=== PATIENT | female | born 2000 | race Caucasian/White ===

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

== ENCOUNTER 2021-03-03 11:39 | Inpatient (IN) | payer OTHER, MEDICAID ==
[2021-03-03] MEDS ORDERED: Oxytocin/0.9 % Sodium Chloride 30 UNIT/500 ML BAG ONE (11:49)
[2021-03-03] MEDS ORDERED: Butorphanol 1 MG/ML SDV IVPUSH PRN (11:56)
[2021-03-03] MEDS ORDERED: Lidocaine 1% 50 ML MDV INJECT PRN (11:56)
[2021-03-03] MEDS ORDERED: Carboprost Tromethamine 250 MCG/1 ML Amp IM PRN (11:56)
[2021-03-03] MEDS ORDERED: Water For Irrigation,Sterile 1,000 ML Container IRR PRN (11:56)
[2021-03-03] MEDS ORDERED: Tranexamic Acid 1,000 MG in Sodium Chloride 0.9% 100 ML IV PRN (11:56)
[2021-03-03] MEDS ORDERED: Methylergonovine 0.2 MG/1 ML Amp IM PRN (11:56)
[2021-03-03] MEDS ORDERED: Misoprostol 200 MCG Tab PO PRN (11:56)
[2021-03-03] MEDS ORDERED: Sodium Chloride 0.9% 10 ML Syringe FLUSH PRN (11:56)
[2021-03-03] MEDS ORDERED: Sodium Chloride 0.9% 2.5 ML Syringe FLUSH PRN (11:56)
[2021-03-03] MEDS ORDERED: Sodium Chloride 0.9% 20 ML SDV IV PRN (11:56)
[2021-03-03] MEDS ORDERED: Nalbuphine 10 MG/1 ML Vial IVPUSH PRN (11:56)
[2021-03-03] MEDS ORDERED: Oxytocin/0.9 % Sodium Chloride 30 UNIT/500 ML BAG IV SCH (12:00)
[2021-03-03] MEDS ORDERED: Lactated Ringers 1,000 ML IV SCH (12:00)
[2021-03-03] MEDS ORDERED: Morphine 2 MG/ML SYRINGE ONE (12:09)
[2021-03-03] MEDS ORDERED: Lidocaine 1% 20 ML MDV ONE (12:13)
[2021-03-03] MEDS ORDERED: Lidocaine 1% 20 ML MDV INJECT PRN (12:16)
[2021-03-03] MEDS ORDERED: Morphine 2 MG/ML SYRINGE IVPUSH ONE (12:17)
[2021-03-03] MEDS ORDERED: oxyCODONE 5 MG Tab PO PRN (12:39)
[2021-03-03] MEDS ORDERED: Lanolin 100% Cream 7 GM Tube TOP PRN (12:39)
[2021-03-03] MEDS ORDERED: Docusate Sodium 100 MG Cap PO PRN (12:39)
[2021-03-03] MEDS ORDERED: Witch Hazel Medicated Pads 40/Jar TOP PRN (12:39)
[2021-03-03] MEDS ORDERED: Ibuprofen 400 MG Tab PO PRN (12:39)
[2021-03-03] MEDS ORDERED: Acetaminophen 500 MG Tab PO PRN ×2 (12:39)
[2021-03-03] MEDS ORDERED: Bisacodyl 10 MG Supp RECTAL PRN (12:39)
[2021-03-03] MEDS ORDERED: Benzocaine/Menthol 20%-0.5% Spray 78 GM Cannister TOP PRN (12:39)
--- NOTE | 2021-03-03 12:49 | PCM.OPNOTE ---
- General Post-Op/Procedure Note Date of Surgery/Procedure: 03/03/21 Operative Procedure(s): Spontaneous vaginal delivery. Repair of second degree perineal laceration Findings: Normal appearing female in cephalic presentation. Blood tinged amniotic fluid. Weight 7lbs 8oz. APGARs 8/9. 2nd degree perineal laceration. Pre Op Diagnosis: 1. Diaz intrauterine gestation at 39w0d. 2. Spontaneous labor Post-Op Diagnosis: Same Anesthesia Technique: Local Primary Surgeon: Maggie Lam Pathology: Placenta EBL in mLs: 300 Complications: None known Condition: Good Free Text/Narrative:: Dictation #[id number]
--- NOTE | 2021-03-03 14:16 | OR ---
SURGEON: MAGGIE LAM MD DATE OF PROCEDURE: 03/03/2021 PREOPERATIVE DIAGNOSES: 1. Diaz intrauterine gestation at 39 weeks 0 days. 2. Spontaneous active labor. POSTOPERATIVE DIAGNOSES: 1. Diaz intrauterine gestation at 39 weeks 0 days. 2. Spontaneous active labor. PROCEDURES: 1. Spontaneous vaginal delivery. 2. Second-degree midline laceration repair. PRIMARY SURGEON: Maggie Lam MD ANESTHESIA: Local anesthetic. ESTIMATED BLOOD LOSS: 300 mL. COMPLICATIONS: None known. FINDINGS: Viable female , cephalic presentation. scores of 8 at one minute, 9 at five minutes. Weight of 7 pounds 8 ounces. Spontaneous delivery of intact placenta. Three-vessel cord. Blood-tinged amniotic fluid. DISPOSITION: The patient is in LDRP with . PROCEDURE DETAILS: The patient is a 20-year-old, 2, para 1, who presented to Labor and Delivery at 39 weeks and 0 days in spontaneous active labor. Upon arrival to the hospital, she was noted to be 9 cm dilated with a bulging bag. Shortly after admission to the hospital, artificial rupture of membranes was performed per patient request with blood-tinged amniotic fluid, Shortly thereafter, the patient pushed with good efforts on hands and knees and delivered a viable female at 1202. The infant's oropharynx and nares were bulb suctioned. The was handed off to the mother with attending nursing staff at bedside. After a delay, the cord was clamped and cut. Arterial, venous, and cord blood gases were then obtained. Light pressure was applied while the placenta was delivered spontaneously intact. 30 units of Pitocin was delivered in 500 mL of IV fluid. Upon inspection of the cervix, vaginal hollis and perineum, there was found to be a second-degree midline laceration. Prior to repair of the laceration, the patient received 2 mg of IV morphine and 10 mL of local anesthetic was injected into the perineum. The second-degree perineal laceration was repaired in usual fashion with 3-0 Vicryl. Hemostasis appeared evident. Uterus remained firm. Sponge, lap, and needle counts were correct. The patient remained in LDRP at this time. DEUCE / BRYCE /[id number] [facility]
[2021-03-03] MEDS: Ibuprofen 800 MG Tab PO PRN (15:38)
[2021-03-04] MEDS: Ibuprofen 800 MG Tab PO PRN (04:59)
--- NOTE | 2021-03-04 06:10 | PCM.PNPP ---
- General Info Date of Service: 03/04/21 Subjective Update: Resting comfortably in bed during rounds. Pain well controlled. Ambulating and voiding without difficulty. Lochia decreasing. Tolerating regular diet. , working on latching. - General Info Date of Service: 03/04/21 - Patient Data Weight - Most Recent: 160 lb I&O - Last 24 Hours: Intake & Output 03/03/21 03/03/21 03/04/21 14:59 22:59 06:59 Output Total 430 Balance -430 Lab Results - Last 24 Hours: Laboratory Results - last 24 hr 03/03/21 03/03/21 03/03/21 Range/Units 11:45 12:02 12:25 WBC 15.20 H (4.0-11.0) K/uL RBC 4.61 (4.30-5.90) M/uL Hgb 12.9 (12.0-16.0) g/dL Hct 38.0 (36.0-46.0) % MCV 82.4 (80.0-98.0) fL MCH 28.0 (27.0-32.0) pg MCHC 33.9 (31.0-37.0) g/dL RDW Std Deviation 40.8 (28.0-62.0) fl RDW Coeff of Oz 14 (11.0-15.0) % Plt Count 121 L (150-400) K/uL MPV 12.60 H (7.40-12.00) fL Nucleated RBC % 0.0 /100WBC Nucleated RBCs # 0 K/uL Cord VBG pH 7.360 (7.25-7.45) Cord VBG Base Excess -1.5 H (-10--2) SARS-CoV-2 RNA (JENNIFER) POSITIVE H (NEGATIVE) Blood Type Antibody Screen 03/03/21 03/04/21 Range/Units 13:02 05:36 WBC (4.0-11.0) K/uL RBC (4.30-5.90) M/uL Hgb 9.6 L (12.0-16.0) g/dL Hct 28.9 L (36.0-46.0) % MCV (80.0-98.0) fL MCH (27.0-32.0) pg MCHC (31.0-37.0) g/dL RDW Std Deviation (28.0-62.0) fl RDW Coeff of Oz (11.0-15.0) % Plt Count (150-400) K/uL MPV (7.40-12.00) fL Nucleated RBC % /100WBC Nucleated RBCs # K/uL Cord VBG pH (7.25-7.45) Cord VBG Base Excess (-10--2) SARS-CoV-2 RNA (JENNIFER) (NEGATIVE) Blood Type A NEGATIVE Antibody Screen NEGATIVE Med Orders - Current: Current Medications Acetaminophen (Acetaminophen 500 Mg Tab) 500 mg PO Q4H PRN PRN Reason: Pain (mild 1-3) Last Admin: 03/03/21 20:16 Dose: 500 mg Documented by: Acetaminophen (Acetaminophen 500 Mg Tab) 1,000 mg PO Q4H PRN PRN Reason: Pain (mild 1-3) Last Admin: 03/03/21 21:15 Dose: 500 mg Documented by: Benzocaine/Menthol (Benzocaine/Menthol 20%-0.5% Selma 78 Gm Cannister) 78 gm TOP ASDIRECTED PRN PRN Reason: Perineal Comfort Measure Last Admin: 03/03/21 15:38 Dose: 1 can Documented by: Bisacodyl (Bisacodyl 10 Mg Supp) 10 mg RECTAL ONETIME PRN PRN Reason: Constipation Butorphanol Tartrate (Butorphanol 1 Mg/Ml Sdv) 1 mg IVPUSH Q1H PRN PRN Reason: Pain (severe 7-10) Carboprost Tromethamine (Carboprost Tromethamine 250 Mcg/1 Ml Amp) 250 mcg IM ASDIRECTED PRN PRN Reason: Post Hemorrhage Docusate Sodium (Docusate Sodium 100 Mg Cap) 100 mg PO Q12H PRN PRN Reason: Constipation Emollient Ointment (Lanolin 100% Cream 7 Gm Tube) 0 gm TOP ASDIRECTED PRN PRN Reason: Sore Nipples Last Admin: 03/03/21 17:43 Dose: 7 gm Documented by: Lactated Ringer's (Ringers, Lactated) 1,000 mls @ 150 mls/hr IV ASDIRECTED DAWSON Oxytocin/Sodium Chloride (Oxytocin 30 Unit In Ns 0.9% 500 Ml Premix) 30 unit in 500 mls @ 999 mls/hr IV TITRATE DAWSON Last Admin: 03/03/21 12:03 Dose: 999 mls/hr Documented by: Tranexamic Acid 1,000 mg/ (Sodium Chloride) 110 mls @ 660 mls/hr IV ONETIME PRN PRN Reason: Bleeding Ibuprofen (Ibuprofen 400 Mg Tab) 400 mg PO Q4H PRN PRN Reason: Pain (mild 1-3) Ibuprofen (Ibuprofen 800 Mg Tab) 800 mg PO Q6H PRN PRN Reason: Cramping Last Admin: 03/04/21 04:59 Dose: 800 mg Documented by: Lidocaine HCl (Lidocaine 1% 20 Ml Mdv) 40 ml INJECT ONETIME PRN PRN Reason: Laceration repair Methylergonovine Maleate (Methylergonovine 0.2 Mg/1 Ml Amp) 0.2 mg IM ASDIRECTED PRN PRN Reason: Post Hemorrhage Misoprostol (Misoprostol 200 Mcg Tab) 200 mcg PO ONETIME PRN PRN Reason: Post Hemorrhage Nalbuphine HCl (Nalbuphine 10 Mg/1 Ml Vial) 10 mg IVPUSH Q1H PRN PRN Reason: Pain (severe 7-10) Oxycodone HCl (Oxycodone 5 Mg Tab) 5 mg PO Q2H PRN PRN Reason: Pain (severe 7-10) Last Admin: 03/03/21 21:16 Dose: 5 mg Documented by: Sodium Chloride (Sodium Chloride 0.9% 10 Ml Syringe) 10 ml FLUSH ASDIRECTED PRN PRN Reason: Keep Vein Open Sodium Chloride (Sodium Chloride 0.9% 2.5 Ml Syringe) 2.5 ml FLUSH ASDIRECTED PRN PRN Reason: Keep Vein Open Sodium Chloride (Sodium Chloride 0.9% 20 Ml Sdv) 10 ml IV ASDIRECTED PRN PRN Reason: IV Use Sterile Water (Water For Irrigation,Sterile 1,000 Ml Container) 1,000 ml IRR ASDIRECTED PRN PRN Reason: delivery Witch Inge (Witch Inge Medicated Pads 40/Jar) 1 pad TOP ASDIRECTED PRN PRN Reason: comfort care Last Admin: 03/03/21 15:38 Dose: 1 tub Documented by: Discontinued Medications Oxytocin/Sodium Chloride (Oxytocin 30 Unit In Ns 0.9% 500 Ml Premix) Confirm Administered Dose 30 unit in 500 mls @ as directed .ROUTE .STK-MED ONE Stop: 03/03/21 11:50 Last Admin: 03/03/21 21:29 Dose: Not Given Documented by: Lidocaine HCl (Lidocaine 1% 50 Ml Mdv) 50 ml INJECT ONETIME PRN PRN Reason: Laceration repair Last Admin: 03/03/21 12:41 Dose: 50 ml Documented by: Lidocaine HCl (Lidocaine 1% 20 Ml Mdv) Confirm Administered Dose 20 ml .ROUTE .STK-MED ONE Stop: 03/03/21 12:14 Last Admin: 03/03/21 21:31 Dose: Not Given Documented by: Morphine Sulfate (Morphine 2 Mg/Ml Syringe) Confirm Administered Dose 2 mg .ROUTE .STK-MED ONE Stop: 03/03/21 12:10 Last Admin: 03/03/21 21:30 Dose: Not Given Documented by: Morphine Sulfate (Morphine 2 Mg/Ml Syringe) 2 mg IVPUSH ONETIME ONE Stop: 03/03/21 12:18 Last Admin: 03/03/21 12:10 Dose: 2 mg Documented by: - Interaction Infant Disposition, : [place] in Room with Family Interaction: Holding Feeding: Attempted ; Nursed Fair/Poor Support Person: Significant Other - Recovery Exam Fundal Level: 1 Fingerbreadths Below Umbilicus Fundal Placement: Midline Lochia Amount: Scant Lochia Color: Rubra/Red Perineum Description: Intact, Minimal Bruising/Swelling Urinary Elimination: Voided - Exam General: Alert Lungs: Normal Respiratory Effort Cardiovascular: Regular Rate GI/Abdominal Exam: Soft, Non-Tender Extremities: Normal Range of Motion, Non-Tender, No Pedal Edema Skin: Warm, Dry, Intact Neurological: No New Focal Deficit Psy/Mental Status: Normal Mood - Problem List Review Problem List Initiated/Reviewed/Updated: Yes - My Orders Last 24 Hours: My Active Orders 03/03/21 11:45 RPR (SYPHILIS SERO) W/ RFLX [REF] Routine 03/03/21 11:56 Patient Status [ADT] Routine Notify Provider [RC] PRN Vital Signs [RC] PER UNIT ROUTINE Butorphanol [Stadol] 1 mg IVPUSH Q1H PRN Carboprost Tromethamine [Hemabate DS] 250 mcg IM ASDIRECTED PRN Methylergonovine [Methergine] 0.2 mg IM ASDIRECTED PRN Nalbuphine [Nubain] 10 mg IVPUSH Q1H PRN Sodium Chloride 0.9% [Normal Saline] 10 ml IV ASDIRECTED PRN Sodium Chloride 0.9% [Saline Flush] 10 ml FLUSH ASDIRECTED PRN Sodium Chloride 0.9% [Saline Flush] 2.5 ml FLUSH ASDIRECTED PRN Tranexamic Acid [Cyklokapron] 1,000 mg Sodium Chloride 0.9% [Normal Saline] 100 ml IV ONETIME Water For Irrigation,Sterile [Sterile Water for Irrigation] 1,000 ml IRR ASDIRECTED PRN miSOPROStoL [Cytotec] 200 mcg PO ONETIME PRN Scalp Electrode [WOMSER] Per Unit Routine Peripheral IV Insertion Adult [OM.PC] Routine Resuscitation Status Routine 03/03/21 12:00 Lactated Ringers [Ringers, Lactated] 1,000 ml IV ASDIRECTED Oxytocin/0.9 % Sodium Chloride [Oxytocin 30 Unit in NS 0.9% 500 ML Premix] 30 unit in 500 ml IV TITRATE 03/03/21 12:16 Lidocaine 1% [Xylocaine 1%] 40 ml INJECT ONETIME PRN 03/03/21 12:39 Acetaminophen [Tylenol Extra Strength] 1,000 mg PO Q4H PRN Acetaminophen [Tylenol Extra Strength] 500 mg PO Q4H PRN Benzocaine/Menthol [Dermoplast Pain Relief 20%-0.5% Selma] 78 gm TOP ASDIRECTED PRN Docusate Sodium [Colace] 100 mg PO Q12H PRN Ibuprofen [Motrin] 400 mg PO Q4H PRN Ibuprofen [Motrin] 800 mg PO Q6H PRN Lanolin [Lansinoh HPA] See Dose Instructions TOP ASDIRECTED PRN bisacodyL [Dulcolax] 10 mg RECTAL ONETIME PRN oxyCODONE 5 mg PO Q2H PRN witch Inge [Tucks] 1 pad TOP ASDIRECTED PRN 03/03/21 12:40 Patient Status [ADT] Routine May Shower [RC] ASDIRECTED Up ad Janet [RC] ASDIRECTED Vital Signs [RC] PER UNIT ROUTINE Assess Lochia [WOMSER] Per Unit Routine Assess Uterine Involution [WOMSER] Per Unit Routine Peripheral IV Discontinue [OM.PC] Routine 03/04/21 08:00 Ferrous Sulfate 325 mg PO BIDMEALS - Assessment Assessment:: 20 year old PPD1 s/p spontaneous vaginal delivery - Plan Plan:: Routine cares * Rh negative, rubella immune, GBS negative * PO pain medications ordered PRN * Regular diet as tolerated * Encourage ambulation and fluid intake * , nursing assistance as needed Dispo: stable. Anticipate discharge 24-48hrs post delivery pending maternal/ status.
[2021-03-04] MEDS ORDERED: Ferrous Sulfate 325 MG Tab PO SCH (08:00)
[2021-03-04 17:33] VITALS: BP 107/87; PULSE 84
== END 2021-03-04 17:14 | disposition home or self-care (01) | DRG 805 ==
LOC: MW.OB 11:39 → OBSVTOIN 12:02 → MW.OB 12:02
PROVIDERS: ADMIT Obstetrics & Gynecology; ATTEND Obstetrics & Gynecology
PROC: 10E0XZZ Delivery of Products of Conception, External Approach (ICD-10-PCS; principal; 2021-03-03)
PROC: 0KQM0ZZ Repair Perineum Muscle, Open Approach (ICD-10-PCS; 2021-03-03)
DX: O98.52 Other viral diseases complicating childbirth (principal); U07.1 COVID-19; Z37.0 Single live birth; O70.1 Second degree perineal laceration during delivery; Z3A.39 39 weeks gestation of pregnancy
CPT/HCPCS: 36415; 59409; 82803; 85014; 85018; 85027; 86592; 86850; 86900; 86901; A9270-GY; J2001; J2270; J2590; U0002

== ENCOUNTER 2021-06-03 15:31 | Emergency (ER) | payer BC, MEDICAID ==
[2021-06-03 16:57] LABS: BLOOD UREA NITROGEN,BUN 11 mg/dL (7.0-18.0); CHLORIDE,CL 105 mmol/L (98-107); GLUCOSE RANDOM 92 mg/dL (74-106); POTASSIUM,K 3.7 mmol/L (3.5-5.1); SODIUM,NA 142 mmol/L (136-145)
[2021-06-03 17:54] VITALS: BP 114/64; PULSE 72
== END 2021-06-03 17:54 | disposition home or self-care (01) ==
LOC: MW.ED 15:31
DX: N93.8 Other specified abnormal uterine and vaginal bleeding (principal)
CPT/HCPCS: 36415; 80053; 84703; 85025; 99283

== ENCOUNTER 2024-02-12 19:10 | Emergency (ER) | payer BC, MEDICAID ==
[2024-02-12 21:43] LABS: BASOPHILS ABSOLUTE AUTO 0.05 K/uL (0.00-0.20); BASOPHILS PERCENT AUTO 0.6 % (0.0-1.0); EOSINOPHILS ABSOLUTE AUTO 0.09 K/uL (0.00-0.45); EOSINOPHILS PERCENT AUTO 1.1 % (0.0-6.0); HEMATOCRIT 41.4 % (37.0-47.0); HEMOGLOBIN 14.2 g/dL (12.0-16.0); IMMATURE GRAN ABSOLUTE AUTO 0.01 K/uL (0.00-0.05); IMMATURE GRAN PERCENT AUTO 0.1 % (0.0-0.4); LYMPHOCYTES ABSOLUTE AUTO 2.95 K/uL (1.00-4.80); LYMPHOCYTES PERCENT AUTO 35.3 % (24.0-44.0); MEAN CORPUSCULAR HEMOGLOBIN 29.5 pg (28.0-32.0); MEAN CORPUSCULAR HGB CONC 34.3 g/dL (32.0-36.0); MEAN CORPUSCULAR VOLUME 86.1 fL (83.0-99.0); MEAN PLATELET VOLUME 11.8 fL (9.4-12.3); MONOCYTES ABSOLUTE AUTO 0.55 K/uL (0.00-0.80); MONOCYTES PERCENT AUTO 6.6 % (0.0-8.0); NEUTROPHILS ABSOLUTE AUTO 4.71 K/uL (1.80-7.70); NEUTROPHILS PERCENT AUTO 56.3 % (41.0-71.0); PLATELET COUNT,PLT 169 K/uL (150-400); RED BLOOD CELL COUNT 4.81 M/uL (4.10-5.30); WHITE BLOOD CELL COUNT,WBC 8.36 K/uL (3.9-11.3)
[2024-02-12 22:09] LABS: A/G RATIO 1.4 (0.9-1.6); ALANINE AMINOTRANSFERASE,ALT 21 IU/L (14-63); ALBUMIN 3.9 g/dL (3.4-5.0); ALKALINE PHOSPHATASE 69 U/L (46-116); ASPARTATE AMNIOTRANSFERASE,AST 17 IU/L (15-37); BLOOD UREA NITROGEN,BUN 10 mg/dL (7.0-18.0); CALCIUM 8.3 mg/dL (8.5-10.1); CARBON DIOXIDE,CO2 27.1 mmol/L (21.0-32.0); CHLORIDE,CL 106 mmol/L (98-107); CREATININE 0.7 mg/dL (0.6-1.0); EST CRCL DRUG DOSING (CG) 104.28 mL/min; GLUCOSE RANDOM 83 mg/dL (74-106); LIPASE 50 U/L (16-77); POTASSIUM,K 3.9 mmol/L (3.5-5.1); PROTEIN TOTAL,TP 6.7 g/dL (6.4-8.2); SODIUM,NA 140 mmol/L (136-145)
[2024-02-12 22:11] LABS: ESTIMATED GFR 125 mL/min (>60)
[2024-02-12 23:26] VITALS: BP 92/45; PULSE 63
== END 2024-02-12 23:47 | disposition home or self-care (01) ==
LOC: MW.ED 19:10
DX: R07.89 Other chest pain (principal); Z79.899 Other long term (current) drug therapy; Z75.8 Other problems related to medical facilities and other health care
CPT/HCPCS: 36415; 80053; 81025; 83690; 84484; 85025; 85379; 99285